=== PATIENT | male | born 1995 | race Caucasian/White ===

== ENCOUNTER 2020-02-12 03:42 | Outpatient (CLI) | payer OTHER, SELFPAY ==
[2020-02-12 10:11] LABS: Calculated LDL 142 mg/dL (<100); Cholesterol 203 mg/dL (<200); HDL Cholesterol 42 mg/dL (40-60); Triglyceride 96 mg/dL (<150)
== END 2020-02-12 04:02 ==
PROVIDERS: PCP Family Medicine; Visit Provider Family Medicine
DX: Z13.220 Encounter for screening for lipoid disorders (principal); Z83.438 Family history of other disorder of lipoprotein metabolism and other lipidemia
CPT/HCPCS: 36415; 80061

== ENCOUNTER 2023-02-15 02:08 | Outpatient (CLI) | payer OTHER, SELFPAY ==
[2023-02-15 09:16] LABS: Hemoglobin A1C 5.6 % (<5.7)
[2023-02-15 10:05] LABS: Calculated LDL 158 mg/dL (<100); Cholesterol 222 mg/dL (<200); HDL Cholesterol 41 mg/dL (40-60); Triglyceride 116 mg/dL (<150)
== END 2023-02-15 02:09 | disposition home or self-care (01) ==
LOC: LBO 02:08
PROVIDERS: PCP Family Medicine; Visit Provider Emergency Medicine
DX: E11.9 Type 2 diabetes mellitus without complications (principal); E66.9 Obesity, unspecified; Z83.438 Family history of other disorder of lipoprotein metabolism and other lipidemia
CPT/HCPCS: 36415; 80061; 83036

== ENCOUNTER 2024-03-30 10:45 | Emergency (ER) | payer OTHER, SELFPAY ==
[2024-03-30 10:47] VITALS: BP 155/95; PULSE 94; RESP 18; TEMP 36.8; O2SAT 98
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
[2024-03-30 13:06] VITALS: BP 155/95; PULSE 94; RESP 18; TEMP 36.8; O2SAT 98
== END 2024-03-30 13:06 | disposition home or self-care (01) ==
PROVIDERS: Emergency Provider Nurse Practitioner Family; PCP Family Medicine
DX: S63.502A Unspecified sprain of left wrist, initial encounter (principal); M25.561 Pain in right knee; M25.562 Pain in left knee; T07.XXXA Unspecified multiple injuries, initial encounter; V49.40XA Driver injured in collision with unspecified motor vehicles in traffic accident, initial encounter
CPT/HCPCS: 29125; 73562; 99284; 73110; 99283

== ENCOUNTER 2024-12-21 00:54 | Outpatient (CLI) | payer BC, SELFPAY ==
[2024-12-21 15:07] LABS: HCT 45.6 % (40.0-50.0); MCH 28.4 pg (27.0-33.0); MCHC 32.9 % (32.0-36.0); MCV 86 fL (80-95); MPV 8.2 fL (8.0-11.0); Platelet Count 267 10^3/uL (130-400); RBC 5.29 10^6/uL (4.36-5.78); RDW 13.1 % (11.8-14.1); RDW-SD 40.6 fL; WBC 8.42 10^3/uL (4.4-10.8)
[2024-12-21 15:16] LABS: Hemoglobin A1C 5.7 % (<5.7)
[2024-12-21 15:57] LABS: ALT 66 U/L (16-63); AST 21 U/L (15-37); Albumin 4.2 g/dL (3.4-5.0); Alkaline Phosphatase 83 U/L (46-116); Anion Gap 8.6 mmol/L (3-11); BUN 12 mg/dL (7-18); Bilirubin, Total 0.5 mg/dL (0.2-1.0); CO2 29.4 mmol/L (21.0-32.0); Calcium 9.5 mg/dL (8.5-10.1); Chloride 102 mmol/L (98-107); Estimated GFR 103.84 (mL/min/1.73m2); Glucose 86 mg/dL (74-106); Potassium 3.8 mmol/L (3.5-5.1); Sodium 140 mmol/L (136-145); TSH (W/Ref FT4) 2.12 uIU/mL (0.36-3.74); Total Protein 7.9 g/dL (6.4-8.2)
[2024-12-21 16:14] LABS: Calculated LDL 134 mg/dL (<100); Cholesterol 204 mg/dL (<200); HDL Cholesterol 48 mg/dL (>or=40); Triglyceride 111 mg/dL (<150)
[2024-12-24 09:57] LABS: HBs Antibody, Quant 143.4 mIU/mL (See Note); Hep B Surface Ab Positive (See Note); Hepatitis B Core Antibody Negative (Negative); Hepatitis B Surface Antigen Negative (Negative)
[2024-12-24 10:15] LABS: Hepatitis C Ab w Rflx HCV PCR Negative (Negative)
[2024-12-24 11:55] LABS: HIV-1/2 Ag & Ab Screen Negative (Negative)
== END 2024-12-21 00:55 | disposition home or self-care (01) ==
PROVIDERS: PCP Nurse Practitioner Family; Visit Provider Nurse Practitioner Family
DX: Z00.00 Encounter for general adult medical examination without abnormal findings (principal); E78.5 Hyperlipidemia, unspecified; Z11.59 Encounter for screening for other viral diseases; Z11.4 Encounter for screening for human immunodeficiency virus [HIV]
CPT/HCPCS: 36415; 80053; 80061; 85027; 86704; 86706; 86803; 87340; 87389; 83036; 84443